=== PATIENT | male | born 1955 | race Caucasian/White ===

== ENCOUNTER 2017-09-02 13:27 | Emergency (ER) | payer BC ==
--- NOTE | 2017-09-02 13:35 | UC ---
Abdominal Pain Male HPI - HPI Summary HPI Summary: 62 year old male presents with severe LLQ pain, cramping and diarrhea x 1 week. - History of Current Complaint Stated Complaint: ABD CRAMPING 1 WEEK Time Seen by Provider: 09/02/17 13:34 Hx Obtained From: Patient Onset/Duration: Sudden Onset Severity Initially: Moderate Severity Currently: Moderate Pain Scale Used: 0-10 Numeric - 8 - Allergies/Home Medications Allergies/Adverse Reactions: Allergies Allergy/AdvReac Type Severity Reaction Status Date / Time No Known Allergies Allergy Verified 09/02/17 13:37 Home Medications: Home Medications Calcium Carbonate CHEW TAB* [Tums*] 1,000 mg PO SEE INSTRUCTIONS PRN 09/02/17 [ History Confirmed 09/02/17] Diphenhydramine-Acetaminophen [Tylenol Pm Extra Strength 500-25 mg] 1 tab PO BEDTIME PRN 09/02/17 [History Confirmed 09/02/17] PMH/Surg Hx/FS Hx/Imm Hx Previously Healthy: Yes - Surgical History Surgical History: Yes Surgery Procedure, Year, and Place: KNEE SURGERY, APPENDECTOMY - Social History Alcohol Use: None Substance Use Type: None Smoking Status (MU): Never Smoked Tobacco Review of Systems Constitutional: Negative Skin: Negative Eyes: Negative ENT: Negative Respiratory: Negative Cardiovascular: Negative Gastrointestinal: Abdominal Pain - llq pain Genitourinary: Negative Motor: Negative Neurovascular: Negative Musculoskeletal: Negative Neurological: Negative Psychological: Negative All Other Systems Reviewed And Are Negative: Yes Physical Exam Triage Information Reviewed: Yes Vital Signs Reviewed: Yes Eye Exam: Normal ENT Exam: Normal Dental Exam: Normal Neck exam: Normal Neck: Positive: 1 Respiratory Exam: Normal Cardiovascular Exam: Normal Abdomen Description: Positive: Other: - llq pain Musculoskeletal Exam: Normal Neurological Exam: Normal Psychological Exam: Normal Skin Exam: Normal Abd Pain Male Course/Dx - Differential Dx/Clinical Impression Provider Diagnoses: llq pain Discharge - Discharge Plan Condition: Stable Disposition: OTHER Discharge Disposition Comment: kingnet suggested to go to the er. Patient Education Materials: Acute Abdominal Pain (ED) Referrals: No Primary Care Phys,NOPCP [Primary Care Provider] - Additional Instructions: patient suggested to go to the er for severe llq pain.
[2017-09-02 13:42] VITALS: BP 131/85
== END 2017-09-02 13:57 ==
LOC: UCCORT 13:27
DX: R10.32 Left lower quadrant pain (principal)
CPT/HCPCS: 99212; G0463

== ENCOUNTER 2018-06-02 17:54 | Emergency (ER) | payer BC ==
[2018-06-02 18:09] VITALS: BP 133/94
--- NOTE | 2018-06-02 18:34 | UC ---
Skin Complaint HPI - HPI Summary HPI Summary: This patient is a 63 year old M presenting to [facility] with a chief complaint of pruritic and erythematous "spots" on his RLE first noticed earlier today. Patient reports that he first thought it was a spider bite. The patient complained of diarrhea last week but has since resolved. The patient denies fever, chills, and prior illness. The patient denies pain or burning in areas of the "spots". The patient has a Hx of chicken pox. - History of Current Complaint Chief Complaint: UCRash Time Seen by Provider: 06/02/18 18:21 Stated Complaint: RED SPOTS ON LEG Hx Obtained From: Patient Onset/Duration: Sudden Onset, Lasting Hours - since earlier today, Still Present Skin Exposure Onset/Duration: Hours Ago Timing: Constant Current Severity: None Pain Intensity: 0 Pain Scale Used: 0-10 Numeric Location: Other - RLE Character: Pruritus, Redness Aggravating Factor(s): Nothing Alleviating Factor(s): Nothing Related History: Other: - Chicken Pox - Allergy/Home Medications Allergies/Adverse Reactions: Allergies Allergy/AdvReac Type Severity Reaction Status Date / Time No Known Allergies Allergy Verified 06/02/18 18:11 Review of Systems Constitutional: Other - Denies fever, chills, and prior illness. Skin: Other - pruritic, erythematous "spots" on RLE; no pain or burning in areas of "spots" Gastrointestinal: Diarrhea - Resolved All Other Systems Reviewed And Are Negative: Yes PMH/Surg Hx/FS Hx/Imm Hx Endocrine History: Other Other Endocrine History: No DM Cardiovascular History: Other Other Cardiovascular History: No HTN, CAD - Surgical History Surgical History: Yes Surgery Procedure, Year, and Place: KNEE SURGERY, APPENDECTOMY, tonsillectomy - Family History Known Family History: Positive: Cardiac Disease - Father, Other - Breast Cancer and Stroke- Mother - Social History Alcohol Use: None Substance Use Type: None Smoking Status (MU): Never Smoked Tobacco Physical Exam - Summary Physical Exam Summary: VITAL SIGNS: Reviewed. GENERAL: Patient is a well-developed and nourished MALE who is lying comfortable in the stretcher. Patient is not in any acute respiratory distress. HEAD AND FACE: Normocephalic EYES: PERRLA, EOMI x 2. EARS: Hearing grossly intact. MOUTH: Oropharynx within normal limits. NECK: Supple, trachea is midline, no adenopathy, no JVD, no carotid bruit. CHEST: Symmetric, no tenderness at palpation LUNGS: Clear to auscultation bilaterally. No wheezing or crackles. CVS: Regular rate and rhythm, S1 and S2 present, no murmurs or gallops appreciated. ABDOMEN: Soft, non-tender. Bowel sounds are normal. No abdominal abnormal pulsations. EXTREMITIES: Full ROM in all major joints, no edema, no cyanosis or clubbing. NEURO: Alert and oriented x 3. No acute neurological deficits. Speech is normal and follows commands. SKIN: Dry and warm. Vesicle lesion anterior aspect of R knee and lower leg in a dermatome fashion. Triage Information Reviewed: Yes Vital Signs: Initial Vital Signs Temp 97.8 F 06/02/18 18:04 Pulse 62 06/02/18 18:04 Resp 18 06/02/18 18:04 BP 133/94 06/02/18 18:04 Pulse Ox 99 06/02/18 18:04 Vital Signs Reviewed: Yes Course/Dx - Course Course Of Treatment: 63-year-old male with vesicular lesions in the right lower extremity. Patient is a painful and itchy. Since that the patient has developed shingles. Patient was given Valtrex, follow-up with primary care physician. Patient is hemodynamically stable alert and oriented 3. - Differential Diagnoses - Skin Complaint Differential Diagnoses: Other - shingles - Diagnoses Provider Diagnoses: Shingles Discharge - Sign-Out/Discharge Documenting (check all that apply): Patient Departure - Discharge All imaging exams completed and their final reports reviewed: No Studies - Discharge Plan Condition: Stable Disposition: HOME Prescriptions: ValACYclovir (*) [Valtrex 1 GM(*)] 1 gm PO TID #30 tab Patient Education Materials: Shingles (ED) Referrals: [facility] [Outside] Additional Instructions: Take medications as instructed and adhere to plan Take Acetaminophen or ibuprofen for pain or fever Increase your fluid intake Return to the or go to the emergency department if symptoms worsen Follow-up with primary care physician in next 2-3 days - Billing Disposition and Condition Condition: STABLE Disposition: Home - Attestation Statements Document Initiated by Scribe: Yes Documenting Scribe: Saeed Maier Provider For Whom Scribe is Documenting (Include Credential): Kirk Hernández MD Scribe Attestation: Saeed Juan, scribed for Kirk Hernández MD on 06/02/18 at 1900. Scribe Documentation Reviewed: Yes Provider Attestation: The documentation as recorded by the scribe, Saeed Maier accurately reflects the service I personally performed and the decisions made by me, Kirk Hernández MD
== END 2018-06-02 18:55 | disposition home or self-care (01) ==
LOC: UCEAST 17:54
DX: B02.9 Zoster without complications (principal)
CPT/HCPCS: 99212; G0463

== ENCOUNTER 2018-06-21 12:42 | Emergency (ER) | payer BC ==
--- NOTE | 2018-06-21 13:03 | ED ---
Skin Complaint - HPI Summary HPI Summary: developed some redness in the right lower extremity . s/p episode of shingles in Jun 02 of this year. concerned about possible recurrence now with redness and itching in the same spot - History of Current Complaint Time Seen by Provider: 06/21/18 12:46 Stated Complaint: RASH Hx Obtained From: Patient Onset/Duration: Started Days Ago Timing: Constant Onset Severity: Mild Current Severity: None Skin Location: Discrete Aggravating Symptom(s): Nothing - Allergy/Home Medications Allergies/Adverse Reactions: Allergies Allergy/AdvReac Type Severity Reaction Status Date / Time No Known Allergies Allergy Verified 06/21/18 13:04 Home Medications: Home Medications Ibuprofen 200 mg PO ONCE PRN 06/21/18 [History Confirmed 06/21/18] PMH/Surg Hx/FS Hx/Imm Hx Previously Healthy: Yes - Surgical History Surgery Procedure, Year, and Place: KNEE SURGERY, APPENDECTOMY, tonsillectomy Infectious Disease History: Denies: Traveled Outside the [place] in Last 30 Days - Family History Known Family History: Positive: Cardiac Disease - Father, Other - Breast Cancer and Stroke- Mother - Social History Alcohol Use: None Substance Use Type: Reports: None Smoking Status (MU): Never Smoked Tobacco Review of Systems Constitutional: Negative Eyes: Negative ENT: Negative Cardiovascular: Negative Respiratory: Negative Gastrointestinal: Negative Genitourinary: Negative Musculoskeletal: Negative Skin: Other - dry rash right lower leg with mild pruritis All Other Systems Reviewed And Are Negative: Yes Physical Exam Triage Information Reviewed: Yes Vital Signs Reviewed: Yes Appearance: Positive: Well-Appearing Skin: Positive: Warm, Dry, Other - small area of redness right lateral calf Head/Face: Positive: Normal Head/Face Inspection Eyes: Positive: Normal ENT: Positive: Normal ENT inspection Course/Dx - Diagnoses Provider Diagnoses: Post-inflammatory hyperpigmentation Discharge - Sign-Out/Discharge Documenting (check all that apply): Patient Departure All imaging exams completed and their final reports reviewed: Yes - Discharge Plan Condition: Fair Disposition: HOME Prescriptions: Hydrocortisone 2.5% CREAM(NF) 1 applic TOPICAL BID #1 tube Referrals: No Primary Care Phys,NOPCP [Primary Care Provider] - - Billing Disposition and Condition Condition: FAIR Disposition: Home
[2018-06-21 13:04] VITALS: BP 126/70
== END 2018-06-21 13:41 | disposition home or self-care (01) ==
LOC: UCEAST 12:42
DX: L81.0 Postinflammatory hyperpigmentation (principal)
CPT/HCPCS: 87101; 99212; G0463

== ENCOUNTER 2018-11-19 10:22 | Emergency (ER) | payer BC ==
--- NOTE | 2018-11-19 10:26 | UC ---
Respiratory Complaint HPI - HPI Summary HPI Summary: 63 yo male presents with post nasal drip, runny nose, and dry cough for the last 10 days. He has been taking dayquill/nyquill OTC with no relief. He feels that his cough is becoming productive over the last 2 days with yellow sputum. He denies fever, chills, sore throat, SOB, chest pain. He does not smoke. - History of Current Complaint Stated Complaint: URI Time Seen by Provider: 11/19/18 10:26 Hx Obtained From: Patient Onset/Duration: Gradual Onset - Allergies/Home Medications Allergies/Adverse Reactions: Allergies Allergy/AdvReac Type Severity Reaction Status Date / Time No Known Allergies Allergy Verified 06/21/18 13:04 Home Medications: Home Medications D-Methorphan/PE/Acetaminophen [Daytime Cold-Flu Liquid] 15 ml PO Q8HR PRN [History Confirmed 11/19/18] Dextromethorphan Hb/Doxylamine [Night Time Cough Liquid] 15 ml PO Q8H PRN [History Confirmed 11/19/18] PMH/Surg Hx/FS Hx/Imm Hx - Additional Past Medical History Additional PMH: None - Surgical History Surgical History: Yes Surgery Procedure, Year, and Place: KNEE SURGERY, APPENDECTOMY, tonsillectomy - Family History Known Family History: Positive: Cardiac Disease - Father, Other - Breast Cancer and Stroke- Mother - Social History Lives: With Family Alcohol Use: None Substance Use Type: None Smoking Status (MU): Never Smoked Tobacco Review of Systems All Other Systems Reviewed And Are Negative: Yes Constitutional: Positive: Negative Skin: Positive: Negative Eyes: Positive: Negative ENT: Positive: Nasal Discharge Respiratory: Positive: Cough Cardiovascular: Positive: Negative Gastrointestinal: Positive: Negative Neurovascular: Positive: Negative Neurological: Positive: Negative Psychological: Positive: Negative Physical Exam - Summary Physical Exam Summary: GENERAL: NAD. WDWN. No pain distress. SKIN: No rashes, sores, lesions, or open wounds. HEENT: Head: AT/NC Eyes: EOM intact. Conjunctiva clear without inflammation or discharge. Ears: Hearing grossly normal. TMs intact, no bulging, erythema, or edema. Nose: Nasal mucosa pink and moist. NTTP maxillary and frontal sinus. Throat: Posterior oropharynx without exudates, erythema, or tonsillar enlargement. Uvula midline. NECK: Supple. Nontender. No lymphadenopathy. CHEST: CTAB. No r/r/w. No accessory muscle use. Breathing comfortably and in no distress. CV: RRR. Without m/r/g. Pulses intact. Cap refill <2seconds NEURO: Alert. PSYCH: Age appropriate behavior. Triage Information Reviewed: Yes Vital Signs: Vital Signs: Temp Pulse Resp BP Pulse Ox 97.9 F 69 16 124/82 98 11/19/18 10:31 11/19/18 10:31 11/19/18 10:31 11/19/18 10:31 11/19/18 10:31 Vital Signs Reviewed: Yes Respiratory Course/Dx - Course Course Of Treatment: Discussed with pt that his symptoms are likely viral in nature and recommended mucinex, flonase, and claritin - however pt prefers to be on antibiotics at this time. - Differential Dx/Diagnosis Provider Diagnosis: URI (upper respiratory infection) Discharge - Sign-Out/Discharge Documenting (check all that apply): Patient Departure All imaging exams completed and their final reports reviewed: No Studies - Discharge Plan Condition: Stable Disposition: HOME Prescriptions: Azithromycin TAB* [Zithromax TAB (Z-JULIO) 250 mg #6 tabs] 2 tab PO .TODAY, THEN 1 DAILY #1 julio Patient Education Materials: Acute Bronchitis (ED) Referrals: No Primary Care Phys,NOPCP [Primary Care Provider] - Additional Instructions: If you develop a fever, shortness of breath, chest pain, new or worsening symptoms - please call your PCP or go to the ED. - Billing Disposition and Condition Condition: STABLE Disposition: Home
[2018-11-19 10:35] VITALS: BP 124/82
== END 2018-11-19 10:42 | disposition home or self-care (01) ==
LOC: UCEAST 10:22
DX: J06.9 Acute upper respiratory infection, unspecified (principal)
CPT/HCPCS: 99211; G0463

== ENCOUNTER 2019-09-22 07:20 | Emergency (ER) | payer BC ==
[2019-09-22 07:29] VITALS: BP 136/83
--- NOTE | 2019-09-22 07:42 | UC ---
Throat Pain/Nasal Shady HPI - HPI Summary HPI Summary: Sore throat x 4 days pain is 6 out of 10 , worse with eating better with Tylenol , slight dry cough, no fever, no chills, no body aches - History of Current Complaint Chief Complaint: UCGeneralIllness Stated Complaint: THROAT PAIN Time Seen by Provider: 09/22/19 07:33 Hx Obtained From: Patient Onset/Duration: Gradual Onset, Lasting Days - 4, Still Present Severity: Moderate Pain Intensity: 6 Cough: Nonproductive Associated Signs & Symptoms: Negative: Sinus Discomfort, Nasal Discharge, Fever , Vomiting, Rash - Allergies/Home Medications Allergies/Adverse Reactions: Allergies Allergy/AdvReac Type Severity Reaction Status Date / Time No Known Allergies Allergy Verified 09/22/19 07:29 Home Medications: Home Medications NK [No Home Medications Reported] 09/22/19 [History Confirmed 09/22/19] PMH/Surg Hx/FS Hx/Imm Hx Previously Healthy: Yes - Surgical History Surgical History: Yes Surgery Procedure, Year, and Place: KNEE SURGERY, APPENDECTOMY, tonsillectomy - Family History Known Family History: Positive: Cardiac Disease - Father, Other - Breast Cancer and Stroke- Mother - Social History Alcohol Use: Rare Substance Use Type: None Smoking Status (MU): Never Smoked Tobacco Review of Systems All Other Systems Reviewed And Are Negative: Yes Constitutional: Positive: Negative Skin: Positive: Negative Eyes: Positive: Negative ENT: Positive: Sore Throat Respiratory: Positive: Negative Is Patient Immunocompromised?: No Physical Exam Triage Information Reviewed: Yes Appearance: Well-Appearing, No Pain Distress, Well-Nourished, Ill-Appearing Vital Signs: Initial Vital Signs Temp 98.1 F 09/22/19 07:25 Pulse 74 09/22/19 07:25 Resp 18 09/22/19 07:25 BP 136/83 09/22/19 07:25 Pulse Ox 96 09/22/19 07:25 Vital Signs Reviewed: Yes Eye Exam: Normal Eyes: Positive: Conjunctiva Clear ENT: Positive: Normal ENT inspection, Hearing grossly normal, Pharyngeal erythema. Negative: Nasal congestion, Nasal drainage Neck: Positive: Supple, Nontender, No Lymphadenopathy Respiratory: Positive: Chest non-tender, Lungs clear, Normal breath sounds Cardiovascular: Positive: RRR, No Murmur, Pulses Normal Abdominal Exam: Normal Skin Exam: Normal Throat Pain/Nasal Course/Dx - Differential Dx/Diagnosis Provider Diagnosis: Pharyngitis Discharge ED - Sign-Out/Discharge Documenting (check all that apply): Patient Departure All imaging exams completed and their final reports reviewed: No Studies - Discharge Plan Condition: Stable Disposition: HOME Patient Education Materials: Pharyngitis (ED) Referrals: No Primary Care Phys,NOPCP [Primary Care Provider] - If Needed - Billing Disposition and Condition Condition: STABLE Disposition: Home
== END 2019-09-22 07:59 | disposition home or self-care (01) ==
LOC: UCEAST 07:20
DX: J02.9 Acute pharyngitis, unspecified (principal)
CPT/HCPCS: 87651; 99211; G0463

== ENCOUNTER 2019-10-26 07:12 | Emergency (ER) | payer BC, MEDICARE ==
[2019-10-26 07:31] VITALS: BP 124/79
--- NOTE | 2019-10-26 07:55 | UC ---
Respiratory Complaint HPI - HPI Summary HPI Summary: 64 yo man returns for reassessment due to persistent shortness of breath. He was seen on 10/12 and treated with doxycycline and albuterol for bronchitis. Initially he improved, and cough has essentially resolved. Over the past several days, he has increased shortness of breath at night, and this morning awoke feeling short of breath. Denies chest pain. He has never smoked, has a family history of heart disease in his father. He has no hx of hypertension, has never smoked, no hx of elevated cholestrerol He reports 5 pounds weight loss over the past weeks as eating worsens his shortness of breath. He is aware of some stress, but overall decreased since decision made to retire. he does not exercise aerobically but does not have increased symptoms with physical activity. - History of Current Complaint Chief Complaint: UCRespiratory Stated Complaint: COUGH/CONGEST Time Seen by Provider: 10/26/19 07:43 Hx Obtained From: Patient Onset/Duration: Gradual Onset, Lasting Hours Timing: Constant Severity Initially: Mild Severity Currently: Moderate Pain Intensity: 0 Aggravating Factors: Nothing Alleviating Factors: Nothing - Breathing seemed worse with bronchodilator. Associated Signs And Symptoms: Positive: Dyspnea - Risk Factors Pulmonary Embolism Risk Factors: Negative Cardiac Risk Factors: Family History Pseudomonas Risk Factors: Negative Tuberculosis Risk Factors: Negative - Allergies/Home Medications Allergies/Adverse Reactions: Allergies Allergy/AdvReac Type Severity Reaction Status Date / Time No Known Allergies Allergy Verified 10/26/19 07:27 PMH/Surg Hx/FS Hx/Imm Hx Previously Healthy: Yes - Surgical History Surgical History: Yes Surgery Procedure, Year, and Place: KNEE SURGERY, APPENDECTOMY, tonsillectomy - Family History Known Family History: Positive: Cardiac Disease - Father, Hypertension - mother , Other - Breast Cancer and Stroke- Mother - Social History Occupation: Employed Full-time Lives: With Family Alcohol Use: Rare Substance Use Type: None Smoking Status (MU): Never Smoked Tobacco Review of Systems All Other Systems Reviewed And Are Negative: Yes Constitutional: Positive: Negative Skin: Positive: Negative Eyes: Positive: Negative ENT: Negative: Sinus Congestion Respiratory: Positive: Shortness Of Breath Cardiovascular: Negative: Palpitations, Chest Pain Gastrointestinal: Negative: Abdominal Pain, Vomiting, Diarrhea, Nausea Motor: Positive: Negative Neurovascular: Positive: Negative Musculoskeletal: Positive: Negative Neurological/Mental Status: Positive: Negative Psychological: Positive: Other - poor sleep Physical Exam Triage Information Reviewed: Yes Appearance: Well-Appearing - without tachypnea or tachycardia. Mildly anxious., No Pain Distress Vital Signs: Initial Vital Signs Temp 97.7 F 10/26/19 07:27 Pulse 67 10/26/19 07:27 Resp 17 10/26/19 07:27 BP 124/79 10/26/19 07:27 Pulse Ox 99 10/26/19 07:27 Vital Signs Reviewed: Yes Eye Exam: Other - VANESSA, fundi not well seen Eyes: Positive: Conjunctiva Clear ENT: Positive: Pharynx normal Dental Exam: Normal Neck: Positive: Supple, Nontender, No Lymphadenopathy Respiratory: Positive: Lungs clear, Normal breath sounds, No respiratory distress, No accessory muscle use. Negative: Crackles, Rhonchi, Wheezing Cardiovascular: Positive: RRR, No Murmur, Pulses Normal Abdomen Description: Positive: Nontender, No Organomegaly, Soft Musculoskeletal Exam: Normal Neurological Exam: Normal Neurological: Positive: Alert, Muscle Tone Normal Psychological Exam: Normal Skin Exam: Normal Diagnostics - Radiology No standard instances Radiology Interpretation Completed By: Radiologist Summary of Radiographic Findings: Chest xray with no active cardiopulmonary disease. - EKG Cardiac Rate: NL Cardiac Rhythm: Sinus: Normal Ectopy: None ST Segment: Normal Respiratory Course/Dx - Course Course Of Treatment: Normal clinical exam, normal EKG and normal chest xray in the face of subjective dyspnea. WE discussed possible gi concerns, and the impact of eating on dyspnea. He is aware that further evaluation is needed and that establishment of care with a primary care physician is needed. Referral given. Discussed trial of acid reduction as a "rule out" for possible causes and he will consider. - Differential Dx/Diagnosis Differential Diagnosis/HQI/PQRI: Bronchitis, Lower Resp Infection, Other - cardiac disease, hiatal hernia Provider Diagnosis: Shortness of breath Discharge ED - Sign-Out/Discharge Documenting (check all that apply): Patient Departure All imaging exams completed and their final reports reviewed: Yes - Discharge Plan Condition: Stable Disposition: HOME Patient Education Materials: Shortness of Breath (ED) Referrals: No Primary Care Phys,NOPCP [Primary Care Provider] - [facility] [Outside] Additional Instructions: As discussed, your chest xray and EKG are normal. Your weight loss and discomfort after eating could be related to a stomach issue , such as a hiatal hernia or early ulcer. You might try use of a proton pump inhibitor such as omeprazole (Prilosec) 20mg once daily about 20 minutes before eating. This reduces stomach acid, and will help to decide if you might have a stomach concern. Please call the physician referral service to establish care with a primary care provider to work out possible causes of your symptoms. STOP use of albuterol. - Billing Disposition and Condition Condition: STABLE Disposition: Home
== END 2019-10-26 08:59 | disposition home or self-care (01) ==
LOC: UCCORT 07:12
DX: R06.02 Shortness of breath (principal); R05 Cough
CPT/HCPCS: 71046; 93005; 99211; G0463